=== PATIENT | female | born 1990 | race Caucasian/White ===

== ENCOUNTER 2019-07-01 08:37 | Outpatient (CLI) | payer OTHER, SELFPAY ==
--- NOTE | 2019-07-01 08:39 | MR_ITS ---
WS: [id number] MRI CERVICAL SPINE HISTORY: CERVICAL DISC DISORDER W/MYELOPATHY MID-CERVICAL REGION COMPARISON: 07/06/2018 Straightening of the normal cervical lordosis. Very slight degenerative disc disease at C5-6 and C6-7 . Signal within the cervical cord is normal. Visualized posterior fossa is unremarkable. Craniocervical junction, C1 and C2 relationship, odontoid process and soft tissues are normal. C2-C3: Normal. C3-C4: Normal. C4-C5: Normal. C5-C6: Mild osteophytic ridging and annular disc bulging. Very slight effacement of the ventral CSF. Very slight contact on the cord with no displacement. C6-C7: Moderate-sized LEFT paracentral disc protrusion and osteophyte. Contact on the cord with very slight deformity. Similar to the CT evaluation from 01/28/2019. C7-T1: Normal. Paraspinal soft tissue are normal. MR/MR cervical spin wo con* [id number] IMPRESSION: 1. Moderate-sized LEFT paracentral disc protrusion with small osteophytes at C 6-7. Slight contact on the cord and deformity. Similar to the prior study of . 2. No cord edema. 3. Mild spondylosis at C5-6.
== END 2019-07-01 08:38 | disposition home or self-care (01) ==
LOC: RADSHAW 08:37
PROVIDERS: Family Provider Family Medicine; PCP Family Medicine; Visit Provider Licensed Practical Nurse
DX: M50.020 Cervical disc disorder with myelopathy, mid-cervical region, unspecified level (principal); M50.223 Other cervical disc displacement at C6-C7 level; M47.892 Other spondylosis, cervical region
CPT/HCPCS: 72141

== ENCOUNTER → 2019-07-03 12:15 | Outpatient (BNVA) | payer OTHER, SELFPAY | PROVIDERS: Family Provider Family Medicine; PCP Family Medicine; Referring Provider Licensed Practical Nurse; Visit Provider Psychiatry & Neurology Neurology | DX: M54.2 Cervicalgia (principal); M79.601 Pain in right arm; M79.602 Pain in left arm | CPT/HCPCS: 95886; 95910 ==

== ENCOUNTER 2019-07-16 14:34 | Outpatient (CLI) | payer OTHER, SELFPAY ==
--- NOTE | 2019-07-16 14:49 | XR_ITS ---
WS: [id number] XR cervical spine fl/ex [id number] REASON FOR EXAM: CERVICAL DISC DISORDER W/MYELOPATHY OF MID CERVICAL REGION FINDINGS: projections with flexion and extension films show evidence of fractures. The disc spaces and vertebral bodies are all normal. Normal flexion-extension. XR/XR cervical spine fl/ex [id number] IMPRESSION: Negative lateral views with flexion-extension of the cervical spine.
== END 2019-07-16 14:35 | disposition home or self-care (01) ==
LOC: RAD 14:45
PROVIDERS: Family Provider Family Medicine; PCP Family Medicine; Visit Provider Licensed Practical Nurse
DX: M50.020 Cervical disc disorder with myelopathy, mid-cervical region, unspecified level (principal)
CPT/HCPCS: 72040

== ENCOUNTER 2019-11-01 12:07 | Emergency (ER) | payer OTHER, SELFPAY ==
[2019-11-01 12:14] VITALS: BP 195/121; PULSE 78; RESP 18; TEMP 36.4; O2SAT 97; BMI 44.9
--- NOTE | 2019-11-01 12:16 | W.ED.ABDPA2 ---
HPI - Abdominal Pain General: Chief Complaint: Abdominal Pain Stated Complaint: ABD PAIN Time Seen by Provider: 11/01/19 12:15 Source: patient Mode of arrival: ambulatory Limitations: no limitations History of Present Illness: HPI narrative: Patient comes in with right upper quadrant abdominal pain, nausea, and diarrhea. Patient reports that this episode started today about 2 hours prior to coming in. Patient reports wavelike pain. Patient appears in moderate pain. Patient appears mildly unwell. MD elicited complaint: abdominal pain Associated Symptoms: Reports diarrhea and nausea Review of Systems General: Reports: 10 or more systems reviewed and unremarkable except in HPI and below GI: Reports: abdominal pain (right side), nausea and diarrhea PFSH ED PFSH: Medical History (Updated 11/01/19 @ 14:22 by ANÍBAL Calderon) Cervical disc disorder with myelopathy of mid-cervical region Morbid obesity Rectoperineal fistula Family History (Updated 08/13/19 @ 15:32 by Skylar Guardado LPN) Father Hypertension Mother Hyperlipidemia Social History (Updated 08/13/19 @ 15:33 by Skylar Guardado LPN) Smoking and tobacco status: never smoked Alcohol intake: current Alcohol intake frequency: holidays/special occasions only Lives independently: Yes Household members: spouse Marital status: Current occupational status: employed History of recent travel: No Physical Exam Const: COMMON NORMALS: no acute distress and patient oriented x3 GENERAL APPEARANCE: cooperative HENMT: COMMON NORMALS: normocephalic and Normal external nose present HEAD & SCALP: normal to inspection and normocephalic NOSE: Normal external nose present MOUTH: Normal oral and palatal mucosa present THROAT: posterior oropharynx normal Eye: GENERAL EYE: appearance normal, both eyes and all related structures Neck/C-Spine: COMMON NORMALS: full ROM Lymph: LYMPHATIC: no lymphadenopathy noted Chest: COMMONS NORMALS: normal inspection of the chest Resp: COMMON NORMALS: normal respiratory effort EFFORT & INSPECTION: Yes able to speak in complete sentences Cardio: COMMON NORMALS: regular rate and regular rhythm RATE: regular rate RHYTHM: regular rhythm GI: COMMON NORMALS: Soft to palpation AUSCULTATION: Yes normoactive bowel sounds PALPATION: Yes Soft to palpation and Yes Tenderness to palpation present (GI) Details: RUQ : COMMON NORMALS: Yes no CVA tenderness BLADDER/KIDNEY EXAM: Yes no CVA tenderness Back/Pelvis: COMMON NORMALS: no CVA tenderness and thoracic and lumbar spine normal to inspection Extremity: COMMON NORMALS: normal to inspection Neuro: COMMON NORMALS: patient oriented x3 and moves all extremities Psych: COMMON NORMALS: mental status grossly normal and cooperative Skin: COMMON NORMALS: no rashes or lesions noted GENERAL SKIN EXAM: no rashes or lesions noted Course Vital Signs: Vital signs: Vital Signs Temperature 97.5 F L 11/01/19 12:14 Pulse Rate 99 11/01/19 14:11 Respiratory Rate 17 11/01/19 14:11 Blood Pressure 173/106 11/01/19 13:40 Pulse Oximetry 99 11/01/19 14:11 MDM - Abdominal Pain MDM Narrative: Medical decision making narrative: Patient came in today with complaints of abdominal pain and diarrhea starting this morning. Patient reports that it came on all of a sudden with significant discomfort. Exam noted right upper quadrant abdominal pain. Respirations were even lungs were clear to auscultation. Vital signs were normal. Differential diagnosis includes but not limited to cholelithiasis, cholecystitis, gastroenteritis, peptic ulcer disease, pancreatitis. Laboratory values were significant for some mild elevation in AST and alk phos. Lipase was normal. Ultrasound showed no significant signs of cholecystitis or cholelithiasis. CT scan of the abdomen and pelvis noted enteritis. Reviewed exam with patient with recommendations for treatment for gastroenteritis. Patient reported understanding agreed to plan with understanding of need for return. Lab Data: Labs: Lab Results 11/01/19 11/01/19 11/01/19 Range/Units 12:32 12:32 12:32 WBC 12.7 H (4.0-10.0) 10^3/ uL RBC 5.08 (4.1-5.3) 10^6/u L Hgb 14.6 (11.5-15.3) g/dL Hct 45.3 (37.0-47.0) % MCV 89.2 (81-99) fL MCH 28.7 (28.0-34.0) pg MCHC 32.2 (30.0-36.0) g/dL RDW 12.2 (12.1-15.1) % Plt Count 411 H (130-400) 10^3/c mm MPV 9.2 (7.4-10.4) fL Neut % (Auto) 84.7 % Lymph % (Auto) 10.8 % Moore % (Auto) 3.3 % Eos % (Auto) 0.8 % Baso % (Auto) 0.2 % Neut # (Auto) 10.8 H (1.8-7.7) 10^3/u L Lymph # (Auto) 1.4 (0.8-4.8) 10^3/u L Moore # (Auto) 0.4 (0.2-0.9) 10^3/u L Eos # (Auto) 0.1 (0.0-0.8) 10^3/u L Baso # (Auto) 0.0 (0.0-0.1) 10^3/u L Nucleated RBC % (a uto) 0 % Nucleated RBCs # 0.0 /100WBC Sodium 136 (136-145) mmol/L Potassium 4.0 (3.5-5.1) mmol/L Chloride 98 (98-107) mmol/L Carbon Dioxide 25 (22-29) mmol/L Anion Gap 17.0 (5-19) BUN 8 (6-20) mg/dL Creatinine 0.4 L (0.5-0.9) mg/dL GFR Calculation 186.2 H (90-130) mL/min Glucose 127 H (65-115) mg/dL Calculated Osmolal ity 279 L (285-295) mOsm/k g Calcium 10.2 (8.5-10.5) mg/dL Total Bilirubin 0.4 (0.15-1.2) mg/dL AST 26 (0-32) U/L ALT 38 H (0-33) U/L Alkaline Phosphata se 119 H (35-105) IU/L Total Protein 8.0 (6.6-8.7) g/dL Albumin 4.6 (3.5-5.2) g/dL Globulin 3.4 (1.3-4.6) g/dL Lipase 13 (13-60) U/L HCG, Qual Negative (Negative) Urine Color (Yellow) Urine Appearance (CLEAR) Urine pH (5-7) Ur Specific Gravit y (1.005-1.030) Urine Protein (Negative) Urine Glucose (UA) (Normal) Urine Ketones (Negative) Urine Blood (Negative) Urine Nitrate (Negative) Urine Bilirubin (NEGATIVE) Urine Urobilinogen (Negative) mg/dL Ur Leukocyte Fawn ase (Negative) 11/01/19 Range/Units 13:27 WBC (4.0-10.0) 10^3/ uL RBC (4.1-5.3) 10^6/u L Hgb (11.5-15.3) g/dL Hct (37.0-47.0) % MCV (81-99) fL MCH (28.0-34.0) pg MCHC (30.0-36.0) g/dL RDW (12.1-15.1) % Plt Count (130-400) 10^3/c mm MPV (7.4-10.4) fL Neut % (Auto) % Lymph % (Auto) % Moore % (Auto) % Eos % (Auto) % Baso % (Auto) % Neut # (Auto) (1.8-7.7) 10^3/u L Lymph # (Auto) (0.8-4.8) 10^3/u L Moore # (Auto) (0.2-0.9) 10^3/u L Eos # (Auto) (0.0-0.8) 10^3/u L Baso # (Auto) (0.0-0.1) 10^3/u L Nucleated RBC % (a uto) % Nucleated RBCs # /100WBC Sodium (136-145) mmol/L Potassium (3.5-5.1) mmol/L Chloride (98-107) mmol/L Carbon Dioxide (22-29) mmol/L Anion Gap (5-19) BUN (6-20) mg/dL Creatinine (0.5-0.9) mg/dL GFR Calculation (90-130) mL/min Glucose (65-115) mg/dL Calculated Osmolal ity (285-295) mOsm/k g Calcium (8.5-10.5) mg/dL Total Bilirubin (0.15-1.2) mg/dL AST (0-32) U/L ALT (0-33) U/L Alkaline Phosphata se (35-105) IU/L Total Protein (6.6-8.7) g/dL Albumin (3.5-5.2) g/dL Globulin (1.3-4.6) g/dL Lipase (13-60) U/L HCG, Qual (Negative) Urine Color Straw (Yellow) Urine Appearance Clear (CLEAR) Urine pH 5.0 (5-7) Ur Specific Gravit y 1.015 (1.005-1.030) Urine Protein Neg (Negative) Urine Glucose (UA) Norm (Normal) Urine Ketones Negative (Negative) Urine Blood Neg (Negative) Urine Nitrate Negative (Negative) Urine Bilirubin Neg (NEGATIVE) Urine Urobilinogen Norm (Negative) mg/dL Ur Leukocyte Fawn ase Negative (Negative) Discharge Plan Discharge Patient Disposition: Home, Self-Care Clinical Impression: Gastroenteritis Condition: Stable Prescriptions: New ondansetron HCl 4 mg tablet 4 mg PO Q8H PRN (Reason: nausea and vomiting) Qty: 10 RF: 0 Continued Imodium A-D 2 mg capsule 4 - 6 mg PO PRN Qty: 20 RF: 0 No Action lisinopril 10 mg tablet 10 mg PO DAILY RF: 0 hydrocodone-acetaminophen [[place]] 5-325 mg tablet 1 tab PO TID PRN (Reason: Pain) RF: 0 gabapentin 400 mg capsule 400 mg PO TID RF: 0 Mirena 20 mcg/24 hours (5 yrs) 52 mg intrauterine device See Rx Instructions .ROUTE .COMPLEX RF: 0 citalopram [Celexa] 40 mg tablet 40 mg PO DAILY RF: 0 Zyrtec 10 mg capsule 10 mg PO DAILY RF: 0 triamcinolone acetonide 0.1 % cream 1 applic TOPICAL TID PRN (Reason: UNKNOWN) RF: 0 Pepcid 20 mg Tablet 20 mg PO DAILY RF: 0 Discharge Orders: Discharge Order (Routine); Ordered 11/01/19 Ordered By: Bart Quinteros Referrals: rFan Clarke MD [Primary Care Provider] - Discharge Diet: Usual diet Discharge Activity: Increase activity as tolerated Activity Restrictions/Additional Instructions: Drink plenty of fluids. Medications as directed for nausea vomiting and diarrhea. Return to the ER for high fever, blood in vomit or stool, or uncontrolled abdominal pain. Follow-up with primary care as needed. Coding Level of Care Code ED [employer] Service [employer] for [employer] Fwd Exam Comprehensive
--- NOTE | 2019-11-01 12:20 | US_ITS ---
WS: [id number] ABDOMINAL ULTRASOUND LIMITED REASON FOR VISIT: RUQ pain, diarrhea TECHNIQUE: Grayscale and Doppler ultrasound examination of the abdomen. FINDINGS: Pancreas: Normal Abdominal aorta and IVC: Normal Liver: Liver measures 17.5 cm in length. Coarse echogenic pattern. No abnormalities of the hepatopeda l circulation. Gallbladder: Gallbladder wall thickness measures 0.2 mm. No stones, common bile duct measured 0.38 cm . Right kidney: Right kidney measures 11.4 cm x 7.4 cm x 3.8 cm. Right kidney cortex measures 1.5 cm. N o hydronephrosis. To be a loop of small bowel adjacent to the liver. No definite obstructive changes. US/US abdomen limited [id number] IMPRESSION: Fatty infiltration of the liver.
[2019-11-01 12:40] LABS: Basophils % 0.2 %; Eosinophils # 0.1 10^3/uL (0.0-0.8); Eosinophils % 0.8 %; Hematocrit 45.3 % (37.0-47.0); Hemoglobin 14.6 g/dL (11.5-15.3); Lymphocytes # 1.4 10^3/uL (0.8-4.8); Lymphocytes % 10.8 %; Mean Corpuscular HGB Conc 32.2 g/dL (30.0-36.0); Mean Corpuscular Hemoglobin 28.7 pg (28.0-34.0); Mean Corpuscular Volume 89.2 fL (81-99); Mean Platelet Volume 9.2 fL (7.4-10.4); Monocytes # 0.4 10^3/uL (0.2-0.9); Monocytes % 3.3 %; Neutrophils # 10.8 10^3/uL (1.8-7.7); Neutrophils % 84.7 %; Nucleated Red Blood Cells % 0 %; Platelet Count 411 10^3/cmm (130-400); Red Blood Count 5.08 10^6/uL (4.1-5.3); Red Cell Distribution Width 12.2 % (12.1-15.1); White Blood Count 12.7 10^3/uL (4.0-10.0)
[2019-11-01 12:44] VITALS: BP 177/109
[2019-11-01] MEDS: cloNIDine 0.1 mg Tablet PO (12:44)
[2019-11-01] MEDS: ondansetron 2 mg/ML SDV 2 mL 4 MG IVP (12:48)
[2019-11-01] MEDS: ketorolac 30 mg/mL INJ 15 MG IVP (12:50)
[2019-11-01] MEDS: sodium chloride 0.9% 500 ML 999 ML IV (12:51)
[2019-11-01 12:52] VITALS: BP 177/109; PULSE 98; RESP 20; O2SAT 98
[2019-11-01 12:53] LABS: Alanine Aminotransferase 38 U/L (0-33); Albumin Level 4.6 g/dL (3.5-5.2); Alkaline Phosphatase 119 IU/L (35-105); Aspartate Amino Transferase 26 U/L (0-32); Blood Urea Nitrogen 8 mg/dL (6-20); Calcium 10.2 mg/dL (8.5-10.5); Carbon Dioxide 25 mmol/L (22-29); Chloride 98 mmol/L (98-107); Globulin 3.4 g/dL (1.3-4.6); Glomerular Filtration Rate 186.2 mL/min (90-130); Glucose 127 mg/dL (65-115); Lipase 13 U/L (13-60); Osmolality Calculated 279 mOsm/kg (285-295); Sodium 136 mmol/L (136-145); Total Bilirubin 0.4 mg/dL (0.15-1.2)
[2019-11-01 13:05] LABS: HCG, Serum Qual Negative (Negative)
--- NOTE | 2019-11-01 13:39 | CT_ITS ---
WS: [id number] CT abdomen pelvis w con* [id number] REASON FOR EXAM: abd pain, elevated liver enzymes IV CONTRAST ADMINISTERED: Omnipaque 300, 95 mL TOTAL EXAM DLP: 2022.[address] scans at [facility] use at least one of these dose optimization techniques: automat ed exposure control; mA and/or kV adjustment per patient size (includes targeted exams where dose is matched to clinical indication); or iterative reconstruction. FINDINGS: Steatosis changes are seen scattered throughout the liver. The gallbladder is contracted. The pancreas head, body, tail were normal. The spleen was of normal size configuration The stomach, adrenal glands, aorta, inferior vena cava, are all normal. There is no lymphadenopathy seen. Both kidneys were normal. No deformities or masses were seen. The right lower quadrant shows nonspecific findings there is no masses seen the appendix was not dila courtney. The small bowel pretty are thickened consistent with enteritis. There is no ileus are evidence of intu ssusception identified. The uterus is small but shows an intrauterine device. The left colon was normal no diverticulosis diverticulitis. No free fluid in the pelvis. No inguinal hernias are umbilical hernias were seen. CT/CT abdomen pelvis w con* [id number] IMPRESSION: Steatosis of the liver. Small bowel enteritis suspected.
[2019-11-01 13:40] VITALS: BP 173/106; PULSE 89; RESP 18; O2SAT 97
[2019-11-01] MEDS: lidocaine 2% viscous 15 ML, aluminum-mag hydrox-simethicon 30 ML, sucralfate oral liq 1 GM PO (13:45)
[2019-11-01 13:48] LABS: Add Urine Microscopic? NO
[2019-11-01] MEDS: famotidine 20 mg/2 mL INJ IVP (13:48)
[2019-11-01] MEDS: iohexol 300 mg/mL 100 mL Btl IV (14:06)
[2019-11-01 14:07] LABS: Bilirubin Urine Neg (NEGATIVE); Blood Urine Neg (Negative); Glucose Urine UA Norm (Normal); Ketones Urine Negative (Negative); Leukocyte Esterase Urine Negative (Negative); Nitrate Urine Negative (Negative); Protein Urine Neg (Negative); Specific Gravity, Urine 1.015 (1.005-1.030); Urine Appearance Clear (CLEAR); Urine Color Straw (Yellow); Urobilinogen Urine Norm (Negative)
[2019-11-01 14:11] VITALS: PULSE 99; RESP 17; O2SAT 99
[2019-11-01 14:49] VITALS: BP 149/105; PULSE 96; RESP 16; O2SAT 97
== END 2019-11-01 14:49 | disposition home or self-care (01) ==
PROVIDERS: Emergency Provider Nurse Practitioner Family; Family Provider Family Medicine; PCP Family Medicine
DX: K52.9 Noninfective gastroenteritis and colitis, unspecified (principal)
CPT/HCPCS: 12345; 36415; 74177; 76705; 80053; 81003; 83690; 84703; 85025; 96374; 96375; 99283; J1885; J2405; J3490; J7040; Q9967

== ENCOUNTER → 2023-01-03 14:21 | Outpatient (BNVA) | payer OTHER, SELFPAY | PROVIDERS: PCP Family Medicine; Visit Provider Family Medicine | DX: K91.2 Postsurgical malabsorption, not elsewhere classified (principal); D64.9 Anemia, unspecified | CPT/HCPCS: 80048; 82306; 82607; 82728; 83540; 83735; 84443 ==

== ENCOUNTER → 2024-05-31 08:54 | Outpatient (BNVA) | payer OTHER, SELFPAY | PROVIDERS: PCP Family Medicine; Visit Provider Family Medicine | DX: K91.2 Postsurgical malabsorption, not elsewhere classified (principal); D64.9 Anemia, unspecified | CPT/HCPCS: 80053; 82306; 82607; 82728; 84443; 85025 ==